=== PATIENT | male | born 1940 | race Caucasian/White ===

== ENCOUNTER → 2018-05-13 | Outpatient (CLI) | payer MEDICARE | END | disposition home or self-care (01) | LOC: RAH 10:24 | PROVIDERS: ATTEND Internal Medicine Endocrinology, Diabetes & Metabolism | DX: E21.0 Primary hyperparathyroidism (principal) | CPT/HCPCS: 78070; A9500 ==

== ENCOUNTER 2019-12-09 10:51 | Day surgery (SDC) | payer MEDICARE ==
[2019-12-07 11:21] LABS: BASOPHILS % (AUTO) 0.9 % (0.0-5.0); EOSINOPHILS % (AUTO) 2.9 % (0.0-8.0); HEMATOCRIT 50.5 % (42-54); LYMPHOCYTES % (AUTO) 16.1 % (21.0-51.0); MEAN CORPUSCULAR HEMOGLOBIN 30.1 pg (27.0-33.0); MEAN CORPUSCULAR HGB CONC 33.5 g/dL (32.0-36.0); MEAN CORPUSCULAR VOLUME 89.9 fL (79-99); MONOCYTES % (AUTO) 9.5 % (3.0-13.0); NEUTROPHILS % (AUTO) 70.1 % (40.0-77.0); PLATELET COUNT (AUTO) 230 K/uL (130-400); RED BLOOD CELL COUNT(AUTO) 5.62 MIL/uL (4.50-6.20); RED CELL DISTRIBUTION WIDTH 13.6 % (11.0-15.5); WHITE BLOOD COUNT (AUTO) 7.9 K/uL (4.8-10.8)
[2019-12-07 11:22] LABS: CREATININE 1.2 mg/dL (0.5-1.5); POTASSIUM 4.7 mmol/L (3.5-5.1)
[2019-12-07 12:07] VITALS: BP 114/63
[~2019-12-09] VITALS: Ht 174 cm; Wt 101.9 kg
[2019-12-09] VITALS (10 sets, daily range): BP systolic 106–129; BP diastolic 60–73
[~2019-12-09 10:51] MED LIST: LEVO125T95 PO
[2019-12-09] MEDS ORDERED: LACTATED RINGERS 1000ML 1,000 ML IV ONE (11:55)
[2019-12-09] MEDS ORDERED: LIDOCAINE HCL 1% 20 ML VIAL ONE (12:00)
[2019-12-09] MEDS ORDERED: DEXAMETHASONE SOD PHOSPHATE 4 MG/ML 1ML VIAL ONE ×2 (12:00→12:16)
[2019-12-09] MEDS ORDERED: ISOVUE-M 200 20 ML VIAL IT ONE (12:23)
--- NOTE | 2019-12-09 13:10 | NUR ---
PATIENT ARRIVED TO DAY PATIENT VIA STRETCHER BY EMMA VAZQUEZ. PATIENT [id number], VITAL SIGNS STABLE. DENIES ANY PAIN AT THIS TIME. BANDAID TO RIGHT HIP IN PLACE AND DRY/INTACT.
--- NOTE | 2019-12-09 13:25 | NUR ---
DICSHARGE INSTRUCTIONS PROVIDED TO PATIENT'S SPOUSE (NHUNG) VIA TELEPHONE. FOLLOW UP APPOINTMENT PROVIDED WITH DR DURAN.
--- NOTE | 2019-12-09 13:30 | NUR ---
PATIENT DISCHARGED FROM FACILITY VIA WHEELCHAIR BY NURSE. PATIENT ASSISTED INTO PRIVATE VEHICLE DRIVEN BY SPOUSE.
== END 2019-12-09 13:30 | disposition home or self-care (01) ==
LOC: DAH 10:51
PROVIDERS: ATTEND Family Medicine Sports Medicine
DX: M25.551 Pain in right hip (principal); Z20.828 Contact with and (suspected) exposure to other viral communicable diseases; I10 Essential (primary) hypertension; E03.9 Hypothyroidism, unspecified; M16.11 Unilateral primary osteoarthritis, right hip; M24.151 Other articular cartilage disorders, right hip
CPT/HCPCS: 27095; 36415; 73503; 73525; 77002; 80048; 85025; A4215; A4221; A4222; A4223; A4663; C9803; J1100 ×2; J7120; Q9966; U0003

== ENCOUNTER 2024-03-27 05:47 | Day surgery (SDC) | payer MEDICARE ==
[2024-03-24 10:26] LABS: BASOPHILS % (AUTO) 1.1 % (0.0-5.0); EOSINOPHILS # (AUTO) 0.28 K/uL (0.00-0.70); EOSINOPHILS % (AUTO) 3.2 % (0.0-8.0); HEMATOCRIT 47.2 % (42-54); IMMATURE GRANULOCYTE ABSOLUTE 0.07 K/uL (0-1); LYMPHOCYTES # (AUTO) 1.7 K/uL (1.0-4.8); LYMPHOCYTES % (AUTO) 19.6 % (21.0-51.0); MEAN CORPUSCULAR HEMOGLOBIN 30.4 pg (27.0-33.0); MEAN CORPUSCULAR HGB CONC 33.5 g/dL (32.0-36.0); MEAN CORPUSCULAR VOLUME 90.9 fL (79-99); MONOCYTES # (AUTO) 0.9 K/uL (0.1-1.0); MONOCYTES % (AUTO) 9.7 % (3.0-13.0); NEUTROPHILS # (AUTO) 5.7 K/uL (1.8-7.7); NEUTROPHILS % (AUTO) 65.6 % (40.0-77.0); PLATELET COUNT (AUTO) 225 K/uL (130-400); RED BLOOD CELL COUNT(AUTO) 5.19 MIL/uL (4.50-6.20); RED CELL DISTRIBUTION WIDTH 13.8 % (11.0-15.5); WHITE BLOOD COUNT (AUTO) 8.7 K/uL (4.8-10.8)
[2024-03-24 10:33] VITALS: BP 124/62; PULSE 51; RESP 18; TEMP 97.2
[2024-03-24 10:35] LABS: CREATININE 1.1 mg/dL (0.5-1.3); POTASSIUM 4.2 mmol/L (3.5-5.1)
[2024-03-24 10:36] LABS: INR 1.02 (0.85-1.15); PROTHROMBIN TIME 11.4 SEC (9.6-11.6)
[2024-03-24 10:37] LABS: PARTIAL THROMBOPLASTIN TIME 26.5 SEC (26.3-35.5)
[2024-03-27] VITALS (9 sets, daily range): BP systolic 94–113; BP diastolic 49–66; PULSE 48–54; RESP 14–18; TEMP 96.2–97.8
[~2024-03-27] VITALS: Ht 175.3 cm; Wt 106.0 kg
[~2024-03-27 05:47] MED LIST changes: +ERGO500093 PO; +LEVO112T7 PO; +LEVO125T11 PO; -LEVO125T95 PO
[2024-03-27] MEDS: LACTATED RINGERS 1000ML 1,000 ML IV ONE (06:37)
[2024-03-27] MEDS ORDERED: proPOFol 10 MG/ML 20ML VIAL IV ONE (07:17)
[2024-03-27] MEDS ORDERED: LIDOCAINE PF 100MG/5ML (2%) SYRINGE 5ML ONE (07:21)
[2024-03-27] MEDS: ceFAZolin SODIUM 1 GM VIAL ONE (07:25)
[2024-03-27] MEDS: IOHEXOL 180 MG/ML 20 ML VIAL IVP ONE (07:31)
[2024-03-27] MEDS: methylPREDNISolone aceTATE 40 MG/ML VIAL ONE (07:32)
[2024-03-27] MEDS: BUPIvacaine/PF 0.25% 30ML VIAL IJ ONE (07:32)
--- NOTE | 2024-03-27 07:46 | OP ---
Operative Note: DATE OF PROCEDURE: 03/27/24 PREOPERATIVE DIAGNOSIS: Right hip osteoarthritis. POSTOPERATIVE DIAGNOSIS: Right hip osteoarthritis. PROCEDURE PERFORMED: Right hip intra-articular steroid injection with fluoroscopic guidance. SURGEON: Opal Jiang MD ABA THERAPIST: None. ANESTHESIA: MAC . ANESTHESIA: NATHALIE Solomon. ESTIMATED BLOOD LOSS: None. COMPLICATIONS: None. DRAINS: None. SPECIMENS REMOVED: None. STATEMENT OF MEDICAL NECESSITY: The patient is a 83-year-old male who suffers from right hip osteoarthritis. After discussion of the risks, benefits and alternatives with the patient , he voluntarily agreed to undergo the aforementioned procedure. DESCRIPTION OF PROCEDURE: The patient was properly identified in the preoperative holding area. Surgical site marking verified. Surgery consent reviewed. He was then taken to the operating room and placed on the OR table in a supine position. After induction of anesthetic, all bony prominences were well padded. A surgical timeout was done verifying the correct surgery side, site, and location to be performed. The right hip was then prepped and draped in the usual sterile fashion. We then began our procedure using fluoroscopic guidance to localize the hip joint. I then used an 18-gauge spinal needle to access the hip joint and injected a cocktail with Depo-Medrol, Marcaine and omnipaque. Using a small amount of the injection, we verified placement of the needle in the joint with fluoroscopy. Once we saw the contrast lining the joint capsule, we then injected the remaining portion of the cocktail and we took fluoroscopy verifying again the injection was done in the right place. We then withdrew our needle and applied a Band-Aid to the injection site. The patient was then awakened from anesthesia and taken to the recovery room in stable condition. OPAL JIANG MD Mar 27, 2024 07:46
--- NOTE | 2024-03-27 08:10 | NUR ---
dressing : band aid to rt anterior hip dry/intact. no redness/swelling noted to surrounding area. ice bag applied to site as per orders.
--- NOTE | 2024-03-27 08:25 | NUR ---
dressing: band aid to anterior rt hip remained dry/intact with no active bleeding present. no redness/swelling noted to surrounding area.
--- NOTE | 2024-03-27 12:08 | HMCIMG ---
HIP UNILAT 4VW RIGHT REASON: PAIN INJECTION, RIGHT HIP. COMPARISON: None TECHNIQUE: Fluoroscopic images of right hip were obtained by referring physician. FINDINGS: Please see procedure report by referring physician. IMPRESSION: Intraoperative films.
== END 2024-03-27 08:25 | disposition home or self-care (01) ==
LOC: DAH 05:47
PROVIDERS: ATTEND Student in an Organized Health Care Education/Training Program
DX: M16.11 Unilateral primary osteoarthritis, right hip (principal); E66.9 Obesity, unspecified; E03.9 Hypothyroidism, unspecified; Z79.01 Long term (current) use of anticoagulants; Z68.41 Body mass index [BMI] 40.0-44.9, adult; Z79.899 Other long term (current) drug therapy
CPT/HCPCS: 80048; 85025; 85610; 85730; 36415; 20610; 77002; 73503; J1010; A4663; J7120; J0690; J0665; J2003; J2704; Q9965; A4215; A4223; A4222; A4221; J3490